=== PATIENT | male | born 1960 | race Caucasian/White ===

== ENCOUNTER 2019-05-22 23:08 | Emergency (ER) | payer SELFPAY ==
[2019-05-23] MEDS ORDERED: ONDANSETRON HCL INJ/PF 4 MG/2 ML SDV IV ONE (00:29)
[2019-05-23 01:01] LABS: ABSOLUTE EOSINOPHILS # (AUTO) 0.2 10^3/uL (0.0-0.6); ABSOLUTE LYMPHOCYTES (AUTO) 1.9 10^3/uL (0.5-4.7); ABSOLUTE MONOCYTES (AUTO) 0.9 10^3/uL (0.1-1.4); ABSOLUTE NEUT (AUTO) 3.6 10^3/uL (1.7-8.2); BASOPHILS % (AUTO) 0.7 % (0-2); EOSINOPHILS % (AUTO) 3.3 % (0-6); HEMATOCRIT 40.8 % (37.9-51.0); HEMOGLOBIN 13.9 g/dL (13.5-17.0); MEAN CORPUSCULAR HEMOGLOBIN 33.2 pg (27.0-33.4); MEAN CORPUSCULAR VOLUME 98 fl (80-97); MONOCYTES % (AUTO) 13.6 % (3-13); PLATELET COUNT 220 10^3/uL (150-450); RED BLOOD COUNT 4.18 10^6/uL (4.35-5.55); RED CELL DISTRIBUTION WIDTH 12.9 % (11.5-14.0); SEGMENTED NEUTROPHILS % (AUTO) 54.4 % (42-78); TOTAL CELLS COUNTED % (AUTO) 100 %; WHITE BLOOD COUNT 6.7 10^3/uL (4.0-10.5)
[2019-05-23 01:05] LABS: INTERNATIONAL RATION (INR) 0.91; PROTHROMBIN TIME 12.2 SEC (11.4-15.4)
[2019-05-23 01:06] LABS: PARTIAL THROMBOPLASTIN TIME 26.2 SEC (23.5-35.8)
[2019-05-23 01:08] LABS: VENOUS BLOOD HCO3 28.6 mmol/L (20-32); VENOUS BLOOD PCO2 52.3 mmHg (35-63); VENOUS BLOOD PH 7.36 (7.30-7.42)
[2019-05-23 01:21] LABS: APPEARANCE,URINE CLEAR; BILIRUBIN,URINE NEGATIVE (NEGATIVE); COLOR,URINE STRAW; GLUCOSE, URINE NEGATIVE (NEGATIVE); KETONES,URINE NEGATIVE (NEGATIVE); LEUKOCYTE ESTERASE,URINE NEGATIVE (NEGATIVE); NITRITE,URINE NEGATIVE (NEGATIVE); PROTEIN,URINE NEGATIVE (NEGATIVE); URINE SPECIFIC GRAVITY 1.003; UROBILINOGEN,URINE NEGATIVE mg/dL (<2.0)
[2019-05-23 01:22] LABS: ALBUMIN 4.4 g/dL (3.5-5.0); ALKALINE PHOSPHATASE 62 U/L (38-126); ANION GAP 13 (5-19); ASPARTATE AMINO TRANSFERASE 26 U/L (17-59); BILIRUBIN,DIRECT 0.2 mg/dL (0.0-0.4); BILIRUBIN,TOTAL 0.2 mg/dL (0.2-1.3); BLOOD UREA NITROGEN 10 mg/dL (7-20); CALCIUM 9.2 mg/dL (8.4-10.2); CARBON DIOXIDE 28 mmol/L (22-30); CHLORIDE 98 mmol/L (98-107); CREATINE KINASE 67 U/L (55-170); GLUCOSE 83 mg/dL (75-110); POTASSIUM 3.1 mmol/L (3.6-5.0)
--- NOTE | 2019-05-23 01:50 | RADIOLOGY REPORT (SQ) ---
EXAM DESCRIPTION: [facility]: XR CHEST 1 VIEW CLINICAL HISTORY: 59 years Male, AMS COMPARISON: None. FINDINGS: Lungs are hyperinflated, with chronic bullous changes bilaterally. No acute infiltrate. No pneumothorax or pleural effusion. Mediastinum is within normal limits for this positioning. Bony structures are unremarkable. IMPRESSION: 1. COPD, with chronic bullous changes bilaterally. 2. No acute infiltrates.
--- NOTE | 2019-05-23 03:09 | RADIOLOGY REPORT (SQ) ---
CT OF THE CHEST, ABDOMEN, AND PELVIS EXAM DATE: 05/23/2019 1:58 AM CDT HISTORY: Weight loss. Jaundice. COMPARISON: None. TECHNIQUE: CT scan of the chest, abdomen, and pelvis with IV contrast. This exam was performed according to our departmental dose-optimization program, which includes automated exposure control, adjustment of the mA and/or kV according to patient size and/or use of iterative reconstruction technique. FINDINGS: The thyroid gland is unremarkable. No mediastinal or axillary adenopathy. Limited evaluation for hilar adenopathy without IV contrast. The heart size is normal without pericardial effusion. No consolidation, pleural effusion, or pneumothorax. Large bullae are present at the lung apices, greater on the right. The gallbladder is contracted, limiting evaluation. The liver, spleen, pancreas, adrenal glands, and kidneys are unremarkable. No hydronephrosis. The pelvic organs are also unremarkable. The appendix is not well visualized. No small bowel obstruction or acute diverticulitis. No intraperitoneal free fluid or free air is seen. The aorta is normal caliber. No acute fracture is identified. Incidentally noted ACDF hardware in the lower. Focal sclerosis of the left iliac wing. No body wall hernia. IMPRESSION: 1. Bullous lung disease in the upper lung zones, greater on the right. 2. No acute intra-abdominal findings.
[2019-05-23 04:22] VITALS: BP 126/75
--- NOTE | 2019-05-23 05:49 | ER Document Report ---
Entered by EMILIO BLAKE SCRIBE 05/23/19 0118 Acting as scribe for:OLYA ROMO DO ED General - General Chief Complaint: Vomiting/Diarrhea Stated Complaint: VOMITTING,DIARRHEA Time Seen by Provider: 05/23/19 00:22 Primary Care Provider: MARIANGEL HARRIS [Primary Care Provider] - Follow up as needed Mode of Arrival: Ambulatory Information source: Patient Notes: Patient is a 59 year old male that presents to the emergency department today with complaints of vomiting and diarrhea for the last x1 week. Patient states his boss man told him that his "eyes look yellow". Patient mentions that he does not really ever to a doctor so he is unsure of any chronic medical problems. Patient endorses weight loss over the last year or so. TRAVEL OUTSIDE OF THE [place] IN LAST 30 DAYS: No - Related Data Allergies/Adverse Reactions: No Known Allergies Allergy (Unverified 05/23/19 02:14) Past Medical History - General Information source: Patient - Social History Smoking Status: Current Every Day Smoker Cigarette use (# per day): Yes Frequency of alcohol use: Heavy Drug Abuse: None Lives with: Family Family History: Reviewed & Not Pertinent Patient has suicidal ideation: No Patient has homicidal ideation: No Past Surgical History: Reports: Hx Orthopedic Surgery Review of Systems - Review of Systems Constitutional: See HPI, Weight loss EENT: No symptoms reported Cardiovascular: No symptoms reported Respiratory: No symptoms reported Gastrointestinal: See HPI, Diarrhea, Vomiting Genitourinary: No symptoms reported Male Genitourinary: No symptoms reported Musculoskeletal: No symptoms reported Skin: No symptoms reported Hematologic/Lymphatic: No symptoms reported Neurological/Psychological: No symptoms reported -: Yes All other systems reviewed and negative Physical Exam - Vital signs Vitals: Temp Pulse Resp BP Pulse Ox 98.2 F 69 18 124/74 100 05/22/19 23:26 05/22/19 23:26 05/22/19 23:26 05/22/19 23:26 05/22/19 23:26 Interpretation: Normal - General General appearance: Appears well, Alert Notes: Patient is very thin and gaunt - HEENT Head: Normocephalic, Atraumatic Eyes: Normal Conjunctiva: No: Icteric Pupils: PERRL - Respiratory Respiratory status: No respiratory distress Chest status: Nontender Breath sounds: Normal Chest palpation: Normal - Cardiovascular Rhythm: Regular Heart sounds: Normal auscultation Murmur: No - Abdominal Inspection: Normal Distension: No distension Bowel sounds: Normal Tenderness: Nontender Organomegaly: No organomegaly - Back Back: Normal, Nontender - Extremities General upper extremity: Normal inspection, Nontender, Normal color, Normal ROM, Normal temperature General lower extremity: Normal inspection, Nontender, Normal color, Normal ROM, Normal temperature, Normal weight bearing. No: Mony's sign - Neurological Neuro grossly intact: Yes Cognition: Normal Orientation: AAOx4 Master Coma Scale Eye Opening: Spontaneous Master Coma Scale Verbal: Oriented Master Coma Scale Motor: Obeys Commands Mcdonald Coma Scale Total: 15 Speech: Normal Motor strength normal: LUE, RUE, LLE, RLE Sensory: Normal - Psychological Associated symptoms: Normal affect, Normal mood - Skin Skin Temperature: Warm Skin Moisture: Dry Skin Color: Normal Course - Re-evaluation Re-evalutation: 05/23/19 04:16 Taking p.o. Feels better, wishes to go home. Patient is a 59-year-old male who comes in for nausea and vomiting. Patient drinks and smokes regularly. He is very thin and thinks he has been losing weight. His boss apparently told him that he looked jaundiced. Patient does not look jaundiced today. His bilirubin is normal. In fact all of his blood work is normal and he has absolutely no evidence for tumor on CT chest abdomen pelvis. He is instructed to follow-up with a primary care doctor regarding his symptoms. Feels better after Zofran and is taking p.o. He asking to be discharged. Stable for discharge home. - Vital Signs Vital signs: Temp Pulse Resp BP Pulse Ox 97.3 F 64 18 126/75 H 100 05/23/19 04:21 05/23/19 04:21 05/23/19 04:21 05/23/19 04:21 05/23/19 04:21 - Laboratory Result Diagrams: 05/23/19 00:40 05/23/19 00:40 Laboratory results interpreted by me: 05/23/19 05/23/19 05/23/19 00:40 00:40 01:01 RBC 4.18 L MCV 98 H [place] % (Auto) 13.6 H Potassium 3.1 L Urine Blood SMALL H - Diagnostic Test Radiology reviewed: Reports reviewed Discharge - Discharge Clinical Impression: Vomiting and diarrhea Condition: Stable Disposition: HOME, SELF-CARE Instructions: Diarrhea, Nonspecific ([facility]), Family Physicians / Practices, Vomiting ([facility]) Additional Instructions: Pick a primary doctor and go see one. Referrals: LOCALMD,NO [Primary Care Provider] - Follow up as needed I personally performed the services described in the documentation, reviewed and edited the documentation which was dictated to the scribe in my presence, and it accurately records my words and actions.
--- NOTE | 2019-05-24 23:05 | EKG REPORT ---
SEVERITY:- NORMAL ECG - SINUS RHYTHM : Confirmed by: Gladis Burns 24-May-2019 23:04:46
[2019-05-25 14:37] LABS: HEPATITS B SURFACE ANTIGEN Negative (Negative)
[2019-05-25 14:47] LABS: HEPATITIS C VIRUS ANTIBODY <0.1 s/co ratio (0.0-0.9)
== END 2019-05-23 04:22 | disposition home or self-care (01) ==
LOC: ER 23:08
DX: R11.2 Nausea with vomiting, unspecified (principal); R19.7 Diarrhea, unspecified; R63.4 Abnormal weight loss; F17.210 Nicotine dependence, cigarettes, uncomplicated
CPT/HCPCS: 93005; 99284; 36415; 87040; 87086; 82962; 80307; 82550; 83690; 85025; 85610; 85730; 80053; 81001; 84484; 82803; 83605; 80074; 71045; 71260; 74177; 93010; J2405